=== PATIENT | male | born 1960 | race Caucasian/White ===

== ENCOUNTER 2019-11-14 18:47 | Emergency (ER) | payer MEDICARE, MEDICAID, SELFPAY ==
--- NOTE | ~2019-11-14 | CT_ITS ---
EXAMINATION: CT cervical spine wo con DATE: 11/14/2019 20:09 INDICATION: Neck pain TECHNIQUE: Computed tomography (CT) of the cervical spine was performed without intravenous contrast. The dose-length product (DLP) was 510.53 mGy-cm. Automated exposure control and iterative reconstruc tion technique were employed. COMPARISON: None FINDINGS: There is no fracture. The C6 and C7 vertebral bodies are fused. There is fusion of the C3 a nd C4 on the right and bilateral C6-7 facet fusion. The vertebral body heights are maintained. Alignm ent is normal. The odontoid is intact. The prevertebral soft tissues are normal. IMPRESSION: 1. Severe cervical spondylosis without acute findings. Reviewed, dictated and finalized at location A.
--- NOTE | ~2019-11-14 | CT_ITS ---
EXAMINATION: CT brain wo con INDICATION: Transient alteration of awareness COMPARISON: None TECHNIQUE: Standard unenhanced head CT. The dose-length product (DLP) was 605.33 mGy-cm. The mA was a djusted according to patient size. Iterative reconstruction technique was employed. FINDINGS: There is no intracranial hemorrhage, acute infarction, or abnormal mass lesion. The ventric les are normal. There is no abnormal mass effect or midline shift. The sampson-white matter differentiat ion is normal. The basal cisterns are patent. The orbits are normal. There is soft tissue swelling of the left parieto-occipital scalp. The paranasal sinuses, mastoids and calvarium are normal. IMPRESSION: 1. No acute intracranial abnormality. Reviewed, dictated and finalized at location A.
--- NOTE | ~2019-11-14 | XR_ITS ---
EXAMINATION: XR hip LT 2V w AP pelvis INDICATION: Left hip pain after fall TECHNIQUE: AP view of the pelvis and two views of the left hip are obtained. COMPARISON: None available FINDINGS: Bone alignment is normal. No fracture is identified. The femoral heads are well-seated in t heir acetabula. The soft tissues are unremarkable. Visualized bowel gas pattern is normal. IMPRESSION: 1. No fracture identified. If there is high clinical suspicion for fracture, consider CT. Reviewed, dictated and finalized at location A. IMPRESSION: 1. No fracture identified. If there is high clinical suspicion for fracture, co nsider CT.
--- NOTE | ~2019-11-14 | XR_ITS ---
EXAMINATION: XR elbow LT 2V INDICATION: Left elbow pain TECHNIQUE: Two views of the left elbow were obtained. COMPARISON: None available FINDINGS: There is no fracture, dislocation, or subluxation. The bones, soft tissues, and joint space s are normal. IMPRESSION: 1. No acute osseous abnormality. Reviewed, dictated and finalized at location A.
[2019-11-14 18:51] VITALS: BP 166/106; PULSE 87; RESP 18; TEMP 36.7; O2SAT 97
--- NOTE | 2019-11-14 19:14 | ED.FALL ---
HPI - Fall General Chief Complaint: Fall Stated Complaint: Fall, pain everywhere Time Seen by Provider: 11/14/19 19:05 History of Present Illness HPI Narrative: 59 yo male presnets after a fall. He reports that he lost consciousness. He reports feeling light headed prior to this. He says that he has recently become homeless and has not eaten in days. He says that he has pain in the neck, left elbow, and left hip. It is not clear if these are new pains. Related Data Home Medications Medication Instructions Recorded Confirmed Unable to Obtain Home Medications 11/14/19 11/14/19 Allergies Allergy/AdvReac Type Severity Reaction Status Date / Time Penicillins Allergy Unknown Verified 11/14/19 19:28 Review of Systems Review of Systems: All systems reviewed & are unremarkable except as noted in HPI and below Constitutional: Constitutional: Reports fatigue, Denies fever(s) and Reports weakness ENT: Reports dizziness Cardiovascular: Cardiovascular: Denies chest pain Respiratory: Respiratory: Denies dyspnea Gastrointestinal: Gastrointestinal: Denies abdominal pain Genitourinary: Genitourinary: Denies dysuria Musculoskeletal: Musculoskeletal: Denies back pain Neurologic: Reports syncope and Denies focal weakness ON LICENSE OF [facility] Past Medical History Medical History (Updated 11/15/19 @ 00:00 by Benja Denney) Arthritis GERD (gastroesophageal reflux disease) Social History Social History (Updated 11/14/19 @ 19:48 by Leo Wallis MD) Living arrangements: homeless Exam Const: General: no acute distress and alert Nutritional Appearance: well nourished Orientation/consciousness: patient oriented x3 HENMT: Head: normal to inspection Eyes: Pupils: Equal, round and reactive pupils present Neck: Neck: normal visual inspection Chest: Chest palpation & inspection: normal inspection of the chest and no tenderness Resp: Effort & Inspection: normal respiratory effort Auscultation: clear to auscultation bilaterally Cardio: Rate: regular rate Rhythm: regular rhythm GI: Inspection: non-distended Other: nontender Back/Spine/Pelvis: Other: Midline tenderness over C6-C7 Skin: General skin exam: normal color Wounds: no wounds Neuro: General: patient oriented x3, moves all extremities, no focal motor deficits and CN's II-XI intact bilaterally Speech: normal speech Extrem: General: normal to inspection Other: Tender over left inguinal ligament. Grossly normal exam of left elbow. Course Vital Signs Vital signs: Vital Signs Temperature 36.7 C 11/14/19 18:51 Pulse Rate 87 11/14/19 18:51 Respiratory Rate 18 11/14/19 18:51 Blood Pressure 166/106 H 11/14/19 18:51 Pulse Oximetry 97 11/14/19 18:51 Temperature 36.7 C 11/14/19 18:51 Pulse Rate 84 11/14/19 22:07 Respiratory Rate 23 H 11/14/19 19:29 Blood Pressure 122/70 11/14/19 22:07 Pulse Oximetry 98 11/14/19 20:33 MDM - Fall MDM Narrative Medical decision making narrative: No acute injury. Walking with stable gait. Medical Records Attestation: I reviewed the patient's medical records. Lab Data Attestation: I reviewed the patient's lab results. Result diagrams: 11/14/19 19:57 11/14/19 19:57 Labs: Lab Results 11/14/19 11/14/19 Range/Units 19:57 19:57 WBC 11.2 H (4.5-10.0) K/mm3 RBC 5.47 (4.6-6.20) M/mm3 Hgb 14.6 (14.0-18.0) g/dL Hct 44.3 (42.0-52.0) % MCV 81.0 (80-100) fl MCH 26.7 (26-34) pg MCHC 33.0 (32-36) g/dl RDW 14.1 (11.5-14.5) % Plt Count 264 (150-375) k/mm3 MPV 9.3 (7.4-10.4) fl Immature Gran % (Auto) 0.4 (0-0.5) % Neut % (Auto) 68.1 (45.5-73.1) % Lymph % (Auto) 20.5 (18.3-44.2) % [place] % (Auto) 10.3 H (2.6-8.5) % Eos % (Auto) 0.3 (0-4.4) % Baso % (Auto) 0.4 (0.2-1.2) % Lymph # (Auto) 2.29 (0.9-3.2) K/mm3 [place] # (Auto) 1.2 H (0.1-0.6) K/mm3 Eos # (Auto) 0.0 (0-0.3) K/mm3 Baso # (Aut
--- NOTE | 2019-11-14 19:26 | ECG_ITS ---
Measurements Intervals [place] Rate: 83 P: 51 NE: 131 QRS: -3 QRSD: 92 T: -8 QT: 344 QTc: 405 Interpretive Statements SINUS RHYTHM ST ELEVATION IN ANTEROLAT/HIGH LAT LEADS- PROBABLY EARLY REPOLARIZATION NONSPECIFIC T-WAVE ABNORMALITY- INFERIOR LEADS BORDERLINE ECG Electronically Signed On 11-15-2019 11:36:45 CDT by Nathaniel Kuo D.O.
[2019-11-14 19:29] VITALS: BP 145/91; PULSE 102; RESP 23
[2019-11-14 19:59] VITALS: BP 142/89; BP 143/93; BP 145/92; PULSE 103; PULSE 93; PULSE 94
[2019-11-14 20:02] LABS: Basophils Percent Auto 0.4 % (0.2-1.2); Eosinophils Percent Auto 0.3 % (0-4.4); Hematocrit 44.3 % (42.0-52.0); Hemoglobin 14.6 g/dL (14.0-18.0); Immature Granulocyte Absolute 0.04 K/mm3 (0.00-0.031); Immature Granulocyte Percent A 0.4 % (0-0.5); Lymphocytes Absolute Auto 2.29 K/mm3 (0.9-3.2); Lymphocytes Percent Auto 20.5 % (18.3-44.2); Mean Corpuscular Hemoglobin 26.7 pg (26-34); Mean Platelet Volume 9.3 fl (7.4-10.4); Monocytes Absolute Auto 1.2 K/mm3 (0.1-0.6); Monocytes Percent Auto 10.3 % (2.6-8.5); Neutrophils Absolute Auto 7.6 K/mm3 (1.3-6.7); Neutrophils Percent Auto 68.1 % (45.5-73.1); Platelet Count Result 264 k/mm3 (150-375); Red Blood Count 5.47 M/mm3 (4.6-6.20); Red Cell Distribution Width 14.1 % (11.5-14.5); White Blood Count 11.2 K/mm3 (4.5-10.0)
[2019-11-14 20:33] VITALS: BP 111/68; PULSE 89; O2SAT 98
[2019-11-14 20:34] LABS: Alanine Aminotransferase 102 U/L (4-50); Albumin Level 4.3 g/dL (3.5-5.1); Alkaline Phosphatase 91 U/L (38-126); Anion Gap 7 mmol/L (8-16); Aspartate Amino Transferase 115 U/L (17-59); Bilirubin,Total 0.8 mg/dL (0.2-1.3); Blood Urea Nitrogen 16 mg/dL (9-20); Calcium 9.2 mg/dL (8.4-10.2); Carbon Dioxide 27 mmol/L (22-30); Chloride 106 mmol/L (98-107); Estimated CRCL calculation 72 ml/min; Estimated Glomerular Filt Rate > 60; Glucose 93 mg/dL (75-110); Sodium 140 mmol/L (137-145)
[2019-11-14 22:07] VITALS: BP 122/70; PULSE 84
--- NOTE | 2019-11-14 22:24 | PC.NURSE ---
Patient ambulated to restroom. C/o pain in feet from blisters. No other complaints. Denies dizziness.
[2019-11-14] MEDS: KETOROLAC 30 MG/ML VIAL (*BKC) IV PUSH (22:40)
== END 2019-11-14 22:49 | disposition home or self-care (01) ==
PROVIDERS: Emergency Provider Emergency Medicine; PCP Neurological Surgery
DX: R55 Syncope and collapse (principal); M47.812 Spondylosis without myelopathy or radiculopathy, cervical region; M19.90 Unspecified osteoarthritis, unspecified site; K21.9 Gastro-esophageal reflux disease without esophagitis; R94.31 Abnormal electrocardiogram [ECG] [EKG]
CPT/HCPCS: 36415; 70450; 72125; 73070; 73502; 80053; 85025; 93005; 96374; 99284; J1885